=== PATIENT | female | born 1945 | race Caucasian/White ===

== ENCOUNTER 2022-05-16 00:56 | Day surgery (SDC) | payer MEDICARE, SELFPAY ==
[2022-05-07 15:44] VITALS: BMI 32.0
--- NOTE | 2022-05-15 08:19 | P.PNAN_ITS ---
Anes - Initial Pre Proc Eval Procedure: Operation Date: 05/16/22 09:30 Proposed Procedures p Esophagogastroduodenoscopy & Screening Colonoscopy - Pasha Arias MD Date/Time: 05/15/22 08:19 Surgeon: Pasha Arias MD Pre Op Diagnosis: dysphagia, neoplasm screening Patient Data Age: 77 Gender: F Height: 1.6 m Weight: 82 kg Allergies Allergy/AdvReac Type Severity Reaction Status Date / Time No Known Allergies Allergy Verified 05/16/22 08:52 Home Medications Medication Instructions Recorded Confirmed Type acetaminophen 650 mg 1,300 mg PO DAILY 05/07/22 05/16/22 History tablet,extended release (Tylenol Arthritis Pain) amlodipine 10 mg tablet 10 mg PO DAILY 05/07/22 05/16/22 History aspirin 81 mg capsule 81 mg PO DAILY 05/07/22 05/16/22 History atorvastatin 40 mg tablet 40 mg PO HS 05/07/22 05/16/22 History carvedilol 12.5 mg tablet 12.5 mg PO BID 05/07/22 05/16/22 History clopidogrel 75 mg tablet 75 mg PO DAILY 05/07/22 05/16/22 History diphenhydramine 25 1 - 2 tablet PO HS PRN Pain 05/07/22 05/16/22 History mg-acetaminophen 500 mg tablet (Tylenol PM Extra Strength) furosemide 20 mg tablet 40 mg PO DAILY 05/07/22 05/16/22 History isosorbide mononitrate 60 mg 120 mg PO DAILY 05/07/22 05/16/22 History tablet,extended release 24 hr losartan 100 mg tablet 100 mg PO DAILY 05/07/22 05/16/22 History melatonin 5 mg tablet 5 mg PO HS 05/07/22 05/16/22 History nitroglycerin 0.4 mg sublingual 0.4 mg sublingual DIRECTED PRN 05/07/22 05/16/22 History tablet Angina omeprazole 40 mg capsule,delayed 40 mg PO DAILY 05/07/22 05/16/22 History release Patient hx anesthesia problems: none Family hx anesthesia problems: none Results Review: All pre-operative results and documents have been reviewed as part of the pre- operative evaluation. [facility] Past Medical History Medical History (Updated 05/15/22 @ 12:58 by Pasha Arias MD) CAD (coronary artery disease) CHF (congestive heart failure) History of heart attack 2005 Hyperlipidemia Hypertension Surgical History Surgical History (Updated 05/15/22 @ 08:20 by Bonilla George DO) History of coronary artery stent placement Hx of CABG x4, 2005 Social History Social History Smoking status: Never smoker Alcohol intake: current Substance use: never Substance use type: does not use Living arrangements: with family Spiritual care concerns: No Anes - Eval Final PreProcedure Day of Procedure 05/15/22 08:19 Patient weight: obese Heart: regular rate and rhythm Lungs: clear to auscultation Airway: Mallampati scale class 1 Neurological: alert and oriented Last oral intake: >/= 8 hours ASA classification: IV Emergent: no Anesthetic plan: proceed Anesthesia type and monitoring: general GIVS and standard monitoring Results Review: All pre-operative results and documents have been reviewed as part of the pre- operative evaluation. Informed Consent: The patient's anesthetic plan and its attendant risks and benefits were discussed with the patient/family/POA. Questions were solicited and answers provided to the satisfaction of the patient/family/POA.
--- NOTE | 2022-05-15 12:57 | PM.HPGS ---
History of Present Illness History of Present Illness Consent: Risks, benefits, and alternatives have been discussed and questions answered. Patient agrees to proceed with procedure. Chief complaint: dysphagia, neoplasm screening Narrative: Sonw Cook is a 77 year old female who has recently been experiencing dysphagia. she does not need to stop eating during a meal. She feels as though food does not want to go past her throat or that is still there even when she has swallowed it. She also has intermittent epigastric pain. She is due for colon cancer screening as well. Review of Systems Review of Systems: All systems reviewed & are unremarkable except as noted in HPI and below PMFSH Past Medical History Medical History CAD (coronary artery disease) CHF (congestive heart failure) History of heart attack 2004 Hyperlipidemia Hypertension Surgical History Surgical History History of coronary artery stent placement Hx of CABG x4, 2005 Social History Social History Smoking status: Never smoker Alcohol intake: current Substance use: never Substance use type: does not use Living arrangements: with family Spiritual care concerns: No Meds Home Medications and Allergies Home Medications Medication Instructions Recorded Confirmed Type acetaminophen 650 mg 1,300 mg PO DAILY 05/07/22 05/16/22 History tablet,extended release (Tylenol Arthritis Pain) amlodipine 10 mg tablet 10 mg PO DAILY 05/07/22 05/16/22 History aspirin 81 mg capsule 81 mg PO DAILY 05/07/22 05/16/22 History atorvastatin 40 mg tablet 40 mg PO HS 05/07/22 05/16/22 History carvedilol 12.5 mg tablet 12.5 mg PO BID 05/07/22 05/16/22 History clopidogrel 75 mg tablet 75 mg PO DAILY 05/07/22 05/16/22 History diphenhydramine 25 1 - 2 tablet PO HS PRN Pain 05/07/22 05/16/22 History mg-acetaminophen 500 mg tablet (Tylenol PM Extra Strength) furosemide 20 mg tablet 40 mg PO DAILY 05/07/22 05/16/22 History isosorbide mononitrate 60 mg 120 mg PO DAILY 05/07/22 05/16/22 History tablet,extended release 24 hr losartan 100 mg tablet 100 mg PO DAILY 05/07/22 05/16/22 History melatonin 5 mg tablet 5 mg PO HS 05/07/22 05/16/22 History nitroglycerin 0.4 mg sublingual 0.4 mg sublingual DIRECTED PRN 05/07/22 05/16/22 History tablet Angina omeprazole 40 mg capsule,delayed 40 mg PO DAILY 05/07/22 05/16/22 History release Allergies Allergy/AdvReac Type Severity Reaction Status Date / Time No Known Allergies Allergy Verified 05/16/22 08:52 Exam Const: General: alert Orientation/consciousness: patient oriented x3 Resp: Auscultation: clear to auscultation bilaterally Cardio: Rhythm: regular rhythm GI: GI Palp: Yes Soft to palpation and No Tenderness to palpation present (GI) Neuro: General: patient oriented x3 Assessment and Plan Assessment and plan (1) Dysphagia: Code(s): R13.10 - Dysphagia, unspecified Status: Acute Assessment and Plan: EGD with possible biopsy or dilatation or cautery. (2) Colon cancer screening: Code(s): Z12.11 - Encounter for screening for malignant neoplasm of colon Status: Acute Assessment and Plan: Colonoscopy with possible biopsy or polypectomy or cautery or injection of substances.
[2022-05-16 08:54] VITALS: BP 137/64; PULSE 68; RESP 18; TEMP 36.1; O2SAT 98; BMI 29.8
[2022-05-16] MEDS: LACTATED RINGERS 1,000 ML 150 ML IV CONT (09:05)
--- NOTE | 2022-05-16 09:40 | SUR.OPER ---
egd ended at 930and colonoscopy started at 939.
[2022-05-16 09:58] VITALS: BP 111/60; PULSE 66; RESP 24; O2SAT 96
[2022-05-16 10:08] VITALS: BP 132/64; PULSE 63; RESP 21; O2SAT 96
[2022-05-16 10:18] VITALS: BP 142/67; PULSE 60; RESP 18; O2SAT 95
== END 2022-05-16 10:27 | disposition home or self-care (01) ==
PROVIDERS: Visit Provider Internal Medicine Gastroenterology
PROC: 0DJ08ZZ Inspection of Upper Intestinal Tract, Via Natural or Artificial Opening Endoscopic (ICD-10-PCS; CPT 43235; principal; 2022-05-16 09:30)
DX: R13.13 Dysphagia, pharyngeal phase (principal); K21.9 Gastro-esophageal reflux disease without esophagitis; Z12.11 Encounter for screening for malignant neoplasm of colon; K57.30 Diverticulosis of large intestine without perforation or abscess without bleeding; I25.10 Atherosclerotic heart disease of native coronary artery without angina pectoris; I11.0 Hypertensive heart disease with heart failure; I50.9 Heart failure, unspecified; I25.2 Old myocardial infarction; E78.5 Hyperlipidemia, unspecified; Z95.5 Presence of coronary angioplasty implant and graft; Z95.1 Presence of aortocoronary bypass graft; Z79.82 Long term (current) use of aspirin; Z79.02 Long term (current) use of antithrombotics/antiplatelets
CPT/HCPCS: 43235; G0121; J2704; J7120

== ENCOUNTER 2023-04-17 15:41 | Outpatient (CLI) | payer MEDICARE, SELFPAY ==
--- NOTE | ~2023-04-17 | US_ITS ---
EXAMINATION: US carotid duplex BI DATE: 04/17/2023 16:34 INDICATION: Left retinal embolus. Left eye vision abnormality. TECHNIQUE: Grayscale, color Doppler, and pulsed Doppler images of the cervical carotid arteries were obtained. The degree of vessel stenosis is placed in one of the following categories: normal, <50%, 5 0-69%, >=70% but less than near-occlusion, near-occlusion, or total occlusion. Note that percent sten osis relative to normal distal artery lumen diameter is indirectly measured from velocity measurement s as described by Derek, et al. Radiology 2003; [id number]. COMPARISON: None. FINDINGS: RIGHT: The right common carotid artery (CCA) peak systolic velocity (PSV) is 80 cm/s. The right internal car otid artery (ICA) PSV is 92 cm/s. The right ICA end-diastolic velocity (EDV) is 16 cm/s. The right IC A/CCA PSV ratio is 1.2. Grayscale and color Doppler images yield an estimate of <50% diameter reducti on from plaque in the ICA. There is antegrade flow in the right vertebral artery. LEFT: The left CCA PSV is 91 cm/s. The left ICA PSV is 105 cm/s. The left ICA EDV is 25 cm/s. The left ICA/ CCA PSV ratio is 1.2. Grayscale and color Doppler images yield an estimate of <50% diameter reduction from plaque in the ICA. There is antegrade flow in the left vertebral artery. IMPRESSION: 1. <50% stenosis in the right internal carotid artery. 2. <50% stenosis in the left internal carotid artery. Reviewed, dictated and finalized at location A. [employer]
== END 2023-04-17 15:42 | disposition home or self-care (01) ==
DX: H34.9 Unspecified retinal vascular occlusion (principal); I65.23 Occlusion and stenosis of bilateral carotid arteries
CPT/HCPCS: 93880

== ENCOUNTER 2025-02-12 08:22 | Emergency (ER) | payer MEDICARE, SELFPAY ==
[2025-02-12 08:27] VITALS: BP 199/65; PULSE 77; RESP 18; TEMP 36.5; O2SAT 96
[2025-02-12 10:08] VITALS: BP 159/79; PULSE 70; RESP 18; O2SAT 94
--- OUTSIDE RECORDS SUMMARY | 2025-02-12 10:28 | XMS_ITS | Clinical Summary ---
Author Organization [facility] Address [address] [place] [address] Care Team Providers Care Capital Campaign Fundraiser Name Role Phone Deondre Torres MD Primary Care Provider [phone] Deondre Torres MD Unavailable [phone] Jaylen Rodriguez MD PhD Unavailable + Sally Harris RN Unavailable Unavailable Argentina Hein RN Unavailable Unavaila Suzy Warner Unavailable Unavailable Allergies No known active allergies Medications aspirin (ASPIR-81) 81 mg tablet take 1 tablet (81MG) by ORAL route every day 0 02/03/20 10 Active diphenhydrAMINE- acetaminophen (TYLENOL PM) 25-500 mg tablet 500 MG TABS - 2 TABS AT BEDTIME Active REFRESH CLASSIC, PF, 1.4-0.6 % dropperette 05/20/19 19 Active melatonin 5 mg capsule 10 mg nightly as needed 05/20/19 19 Active acetaminophen (TYLENOL) 500 mg tablet Take 2 tablets (1,000 mg total) by mouth every 6 (six) hours as needed for pain Active nitroglycerin (NITROSTAT) 0.[address] 1 TABLET (0.4 MG TOTAL) UNDER THE TONGUE EVERY 5 (FIVE) MINUTES NEEDED FOR CHEST PAIN 25 tablet 1 11/09/19 23 Active clopidogreL (PLAVIX) 75 mg tablet TAKE 1 TABLET BY MOUTH DAILY 100 tablet 3 08/05/19 25 Active omeprazole (PriLOSEC) 40 mg capsule TAKE 1 CAPSULE BY MOUTH DAILY BEFORE A MEAL 100 capsule 3 08/04/19 25 Active amLODIPine (NORVASC) 10 mg tablet TAKE 1 TABLET BY MOUTH DAILY 100 tablet 3 08/05/19 25 Active atorvastatin (LIPITOR) 80 mg tablet Take 1 tablet (80 mg total) by mouth nightly 90 tablet 2 10/14/19 25 Active losartan (COZAAR) 100 mg tabletIndication s:Benign essential hypertension TAKE 1 TABLET BY MOUTH DAILY 100 tablet 3 11/09/19 25 Active carvediloL (COREG) 12.5 mg tablet TAKE 1 TABLET BY MOUTH TWICE DAILY 200 tablet 2 02/12/20 25 Active furosemide (LASIX) 20 mg tablet TAKE 3 TABLETS BY MOUTH DAILY 300 tablet 2 02/12/20 25 Active isosorbide mononitrate ER (IMDUR) 60 mg 24 hr tablet TAKE 2 TABLETS BY MOUTH DAILY 200 tablet 2 02/12/20 25 Active carvediloL (COREG) 12.5 mg tablet Take 1 tablet (12.5 mg total) by mouth 2 (two) times a day 180 tablet 3 05/11/19 25 025 Discontinued furosemide (LASIX) 20 mg tablet Take 3 tablets (60 mg total) by mouth daily 270 tablet 3 05/11/19 25 025 Discontinued isosorbide mononitrate ER (IMDUR) 60 mg 24 hr tablet Take 2 tablets (120 mg total) by mouth daily 180 tablet 3 05/11/19 25 025 Discontinued Active Problems Problem Noted Date Diagnosed Date Chronic heart failure with p reserved ejection fraction (HFpEF) 02/09/2025 Assessment & Plan (02/09/2025 12:16 PM CDT): Controlled and chronic. Continue current diet, carvedilol, losartan and amlodipine. 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 Continue current diet, aspirin, clopidogrel, isosorbide and amlodipine. Assessment & Plan (02/09/2025 12:10 PM CDT): Stable anginal pattern. Continue current diet, aspirin, clopidogrel, isosorbide and amlodipine. Check CBC, CMP and FLP. Assessment & Plan (03/17/2024 12:07 PM ACCOUNTING OFFICE MANAGER): Stable anginal pattern. Continue current diet, aspirin, clopidogrel, isosorbide and amlodipine. Check CBC, CMP and FLP. Assessment & Plan (03/13/2022 5:18 PM ACCOUNTING OFFICE MANAGER): Stable angina pattern. Continue current diet and medications. Check CBC, CMP and FLP. Herniation of intervertebral disc of cervical re gion 09/18/2013 Overview (08/08/2016): Cervical disc herniation Gastroesophageal reflux disease 09/18/2013 Overview (08/10/2016): ESOPHAGEAL REFLUX Assessment & Plan (03/13/2022 5:18 PM ACCOUNTING OFFICE MANAGER): New onset dysphagia. Evaluate with an EEG. History of coronary artery bypass surgery 2013 Overview (08/09/2016): S/p CABG (coronary artery bypass graft) Assessment & Plan (10/13/2024 10:58 AM CDT): Stable sp CAB in 2005 with PCI to RCA in 2019. Denies angina. Increase Lipitor to 80 mg daily, continue DAPT, Coreg 12.5 mg BID, losartan 100 mg daily, imdur 60 mg daily,and lasix [address] Rodriguez in 1 year or sooner as needed. Pure hypercholesterolemia 09/18/2013 Overview (08/10/2016): PURE HYPERCHOLESTEROLEM Assessment & Plan (02/09/2025 12:11 PM CDT): LDL above goal. Chronic and uncontrolled. Continue current diet and atorvastatin Target LDL less than 70. Check CMP and FLP. Assessment & Plan (10/13/2024 10:55 AM CDT): LDL above goal. Increase Lipitor to 80mg daily. Assessment & Plan (03/17/2024 12:07 PM ACCOUNTING OFFICE MANAGER): Target LDL less than 70. Continue current diet and atorvastatin. Check CMP and FLP. Assessment & Plan (03/17/2023 12:04 PM ACCOUNTING OFFICE MANAGER): Target LDL less than 70. Continue current diet and atorvastatin. Check CMP and FLP. Assessment & Plan (03/13/2022 5:18 PM ACCOUNTING OFFICE MANAGER): Target LDL less than 70. Continue current diet and atorvastatin. Check CMP and FLP. Low back pain 09/18/2013 Overview (08/10/2016): LUMBAGO Benign hypertension 09/18/2013 Overview (03/17/2024): Target BP <130/80. Continue current diet, aspirin, carvedilol, losartan and amlodipine. Assessment & Plan (02/09/2025 12:11 PM CDT): Controlled and chronic. Target BP less than 130/80. Continue current diet, carvedilol, losartan and amlodipine. Check CBC and CMP. Assessment & Plan (10/13/2024 10:58 AM CDT): Controlled. We made no changes. Assessment & Plan (03/17/2024 12:08 PM ACCOUNTING OFFICE MANAGER): Target BP <130/80. Continue current diet, aspirin, carvedilol, losartan and amlodipine. Assessment & Plan (03/17/2023 12:04 PM ACCOUNTING OFFICE MANAGER): Target BP less than 130/80. Continue current diet, amlodipine, carvedilol and losartan. Check CBC, CMP and FLP. Assessment & Plan (03/13/2022 5:18 PM ACCOUNTING OFFICE MANAGER): Target BP <130/80. Continue current diet and medications. Check CBC and CMP. 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 Continue current diet, aspirin, clopidogrel, isosorbide and carvedilol. Abnormal cardiac function test 07/23/2018 03/17/2024 Overview (07/23/2018): Added automatically from request for surgery [id number] Chest pain 12/05/2016 03/17/2024 Fatigue 11/24/2014 02/16/2018 Coronary arteriosclerosis in cantwell artery 09/18/2013 02/16/2018 Overview (08/08/2016): TITA NEVAREZ VSSL Hypertension 09/18/2013 02/12/2017 Overview (08/10/2016): HYPERTENSION NOS Hyperlipidemia 09/18/2010 02/18/2019 Overview (08/15/2017): Description: Hyperlipidemia Benign essential hypertension 09/18/2010 03/17/2024 Overview (08/15/2017): Description: Benign Essential Hypertension Encounters Date Type Department Care Team Description 02/11/2025 Telephone [facility] [address] [place] [address] [place] Yoo Epistaxis (Nose Bleed) 02/09/2025 1:20 PM CDT - 02/09/2025 11:[address] [address] Discharge Disposition: Discharge to home or self care 02/09/2025 10:15 AM CDT Office Visit [facility] at the [address] [phone] Deondre Torres MD Epistaxis (Primary Dx); Atherosclerosis of cantwell coronary artery of cantwell heart with angina pectoris; Pure hypercholesterolemia ; Benign hypertension; Chronic heart failure with preserved ejection fraction (HFpEF) 02/09/2025 Orders Only [facility] at the [address] [phone] Deondre Torres MD Pure hypercholesterolemia ; Epistaxis; Benign hypertension 02/09/2025 Nurse Triage [facility] at the [address] [phone] Deondre Torres MD from Last 3 Months Immunizations Immunization Administration Dates Next Due COVID-19 MRNA (MODERNA) .5 M L (50 MCG) VACCINE (12 YEARS AND UP) 02/16/2024 COVID-19 mRNA (PFIZER) 0.3 m L (30 mcg) vaccine (12 years and up) 02/03/2025 Influenza, Quad, Adjuvantate d, Intramuscular 02/27/2022 Influenza, Quadrivalent, Hig h Dose, Preservative Free, Intrr 01/27/2023,02/27/2022,01/30/2021,02/21 Influenza, Quadrivalent, Spl it, Intramuscular 02/02/2021 Influenza, Split 02/02/2010 Influenza, Trivalent, High D ose, Split, Preservative Free, Intramuscular 02/16/2024,02/18/2019,02/16/2018,02/12,02/02/2016,02/05/2015,03/04/2014 ,02/02/2014,02/27/2013 Influenza, Trivalent, IM (MDV) 3,02/08/2012,02/02/2011,02/18 Influenza, Unspecified 02/03/2025,01/27/2023 Moderna SARS-CoV-2 Monovalen t Vaccination (12+ YRS) 03/09/2021,07/18/2020,06/20/2020 Moderna Sars-cov-2 Bivalent Vaccine 50 Mcg/0.5 mL (12+ YRS)-Blue/Dupree 04/15/2022 Pneumococcal Conjugate PCV 13 02/02/2016 Pneumococcal Polysaccharide PPV23 05/18/2014,05/2008 Tdap 05/05/2008,08/08/2006 ZOSTER LIVE 07/06/2014,05/19/2014 ZOSTER Recombinant 04/29/2018,02/19/2018 Surgical History Surgery Date Site/Laterality Comments OTHER SURGICAL HISTORY 05/05/2004 - 05/04/2005 Coronary artery disease: CABG OTHER SURGICAL HISTORY 05/05/2004 - 05/04/2005 Coronary artery disease: Coronary artery bypass graft (CABG) CORONARY ARTERY BYPASS GRAFT 05/05/2004 - 05/04/2005 OTHER SURGICAL HISTORY none CARDIAC CATHETERIZATION CORONARY STENT PLACEMENT Medical History Medical History Date Comments Hypertension Hypertension Hyperlipidemia Hyperlipidemia Cardiovascular disease Coronary artery disease Coronary artery disease CHF (congestive heart failure) (HCC) Family History Medical History Relation Name Comments Coronary artery disease Brother Arian nary artery disease; Heart attack Brother Coronary artery disease Father Arian nary artery disease; Cause of : Coronary artery disease Heart attack Father Coronary artery disease Mother Arian nary artery disease, premature; Cause of : Coronary artery disease, premature Heart attack Mother Heart disease Other Family history of Heart disease; Relation Name Status Comments Brother Father (Age 72) Mother (Age 36) Other Social History Tobacco Use Types Packs/Day Years Used Date Smoking Tobacco: Never Smokeless Tobacco: Never Tobacco Cessation:Counseling Given: Not Answered Alcohol Use Standard Drinks/Week Comments No 0 (1 standard drink = 0.6 oz pur e alcohol) AUDIT-C Answer Date Recorded Q1: How often do you have a drink containing alcohol? Never 03/17/2024 Q2: How many drinks containi ng alcohol do you have on a typical day when you are drinking? Patient does not drink Q3: How often do you have si x or more drinks on one occasion? Never 03/17/2024 PHQ-2 Answer Date Recorded PHQ-2 Total Score (If total score is 3 or more points, staff should administer the PHQ-9) 0 02/09/2025 Comments No Sex and Gender Information Value Date Recorded Sex Assigned at Not on file Legal Sex Female 11:43 PM ACCOUNTING OFFICE MANAGER Gender Identity Not on file Sexual Orientation Not on file Obstetrics History Last Filed Vital Signs Vital Sign Reading Time Taken Comments Blood Pressure 130/62 02/09/2025 10:10 AM CDT Pulse 59 02/09/2025 10:10 AM CDT Temperature 37.1 C (98.8 F) 12/20/2021 12:31 PM CDT Respiratory Rate 16 12/08/2023 1:47 PM CDT Oxygen Saturation 98% 02/09/2025 10:10 AM CDT Inhaled Oxygen Concentration - - Weight 80.6 kg (177 lb 9.6 oz) 02/09/2025 10:10 AM CDT Height 160 cm (5' 3) 02/09/2025 10:10 AM CDT Body Mass Index 31.46 02/09/2025 10:10 AM CDT Plan of Treatment Health Maintenance Due Date Last Done Comments Hepatitis C Screening 1945 Hepatitis B Screening 1963 Osteoporosis Screening-Bone Density Scan 08/17/2014 08/17/2012 DTaP/Tdap/Td Vaccine (3 - Td or Tdap) 05/05/2018 05/05/2008, 08/08/2006 Fall Risk Assessment 03/17/2025 03/17/2024, 03/17/2023, 07/04/2022, Additional history exists Well Visit 65+ 03/17/2025 03/17/2024, 03/05, 03/13/2022, Additional history exists Depression Screening 02/09/2026 02/09/2025, 03/17/2024, 03/17/2023, Additional history exists Pneumococcal vaccine 65+ Completed 016, 05/18/2014, 05/05/2008 Zoster Vaccine Completed 04/29/2018, 02/02, 07/06/2014, Additional history exists Breast Cancer Screening-Mammogram Discontinued 03/20/2022, 03/20/2022, 02/25/2019, Additional history exists Covid-19 Vaccine Completed 02/03/2025, , 01/27/2023, Additional history exists Influenza Vaccine Completed 02/03/2025, , 01/27/2023, Additional history exists Medical Devices Implanted Type Area Surg Tech Device Identifier Shelf Expiration Date Model / Serial / Lot [employer] [id number] Angio-Seal Evolution 6fr .035in Guidewire Bypass Tube Suture - [id number] - [id number] Implanted:Qty : 1 on 10/31/2020 by Jordon Underwood MD at [facility] Other - see comments [employer] Kenneth 07/02/2021 [id number] / [id number] Med[employer] X [id number] Resolute Yuri 2.75mm 2.1-2.7fr 38mm 140cm Rapid Exchange - [id number] - [id number] Implanted:Qty : 1 on 08/28/2018 by Jordon Underwood MD at [facility] Stent Right: Coronary Med[employer] X 10/14/2019 [id number] / [id number] / [id number] Description:RCA [employer] X [id number] Resolute [place] 2.5mm 2.1-2.7fr 22mm 140cm Rapid Exchange - [id number] - [id number] Implanted:Qty : 1 on 08/28/2018 by Jordon Underwood MD at [facility] Stent Right: Coronary [employer] X 02/06/2019 [id number] / [id number] / [id number] 2 Description:RCA [employer] X [id number] Resolute Yuri 3mm 2.1-2.7fr 38mm 140cm Rapid Exchange Radiopaque - [id number] - [id number] Implanted:Qty : 1 on 08/28/2018 by Jordon Underwood MD at [facility] Stent Right: Coronary [employer] X 01/15/2020 [id number] / [id number] / [id number] Description:RCA [employer] X [id number] Resolute [place] 2.5mm 2.1-2.7fr 34mm 140cm Rapid Exchange - [id number] Implanted:Qty : 1 on 07/30/2018 by Jordon Underwood MD at [facility] [employer] X 02/12/2019 [id number] / / [id number] [employer] X [id number] Resolute [place] 2.5mm 2.1-2.7fr 8mm 140cm Rapid Exchange Radiopaque - [id number] Implanted:Qty : 1 on 07/30/2018 by Jordon Underwood MD at [facility] [employer] X 01/22/2019 [id number] / / [id number] Procedures Procedure Name Priority Date/Time Associated Diagnosis Comments EGFR Routine 02/09/2025 10:53 AM CDT Epistaxis Benign hypertension DIFFERENTIAL AUTO Routine 02/09/2025 10:53 AM CDT Epistaxis Pure hypercholesterolemia Benign hypertension GLUCOSE, RANDOM (OUTREACH) Routine 02/09/2025 10:53 AM CDT Epistaxis Benign hypertension COMPREHENSIVE METABOLIC PANEL WITHOUT GLUCOSE (OUTREACH) Routine 02/09/2025 10:53 AM CDT Epistaxis Benign hypertension COMPREHENSIVE METABOLIC PANEL (OUTREACH) Routine 02/09/2025 10:53 AM CDT Epistaxis Benign hypertension CBC WITH AUTO DIFFERENTIAL Routine 02/09/2025 10:53 AM CDT Epistaxis Pure hypercholesterolemia Benign hypertension LIPID PANEL Routine 02/09/2025 10:53 AM CDT Pure hypercholesterolemia SCREENING MAMMOGRAM 2D BILATERAL Schedule Routine, Read Routine (OP Routine) 03/20/2022 DEXA AXIAL SKELETON BONE DENSITY 1 OR MORE SITES Routine 08/17/2012 10:42 AM CDT from Last 3 Months or Most Recently Relevant to Health Maintenance Results * Glucose, random (Outreach) (02/09/2025 10:53 AM CDT) Glucose 125 70 - 199 mg/dL Comment: Interpretive Data Fasting glucose >/= 126 mg/dl is diagnostic for diabetes. Fasting is defined as no caloric intake for at least 8 hours. Fasting glucose between 100 mg/dl to 125 mg/dl is diagnostic of prediabetes. In a patient with classic symptoms of hyperglycemia or hyperglycemic crisis, a random glucose >/= 200 mg/dl is diagnostic for diabetes. In the absence of unequivocal hyperglycemia, results should be confirmed by repeat testing. The classification and Diagnosis of Diabetes Diabetes Care 2021; 46: S19-S40. Current interpretive data was last revised 2022. Blood 02/09/2025 10:5 3 AM CDT 02/09/2025 2:17 PM CDT Deondre Torres MD LAB BLOOD ORDERABLES Final Re sult JUSTYN KHAN [facility] Department [place] [address] * (ABNORMAL) eGFR (02/09/2025 10:53 AM CDT) Pathologist [facility] eGFR 50(L) >=60 mL/min/1. 73 m2 Comment: Interpretive Data Reference Interval Normal >/= 90 mL/min/1.73m2 Mildly decreased* 60 - 89 mL/min/1.73m2 Mildly to moderately decreased 45 - 59 mL/min/1.73m2 Moderately to severely decreased 30 - 44 mL/min/1.73m2 Severely decreased 15 - 29 mL/min/1.73m2 Kidney Failure < 15 mL/min/1.73m2 *Relative to young adult level Estimated glomerular filtration rate is determined by the 2020 CKD-EPI equation recommended by the National Kidney Foundation (A Unifying Approach to GFR Estimation: Recommendations of the NKF-ASK Task Force on Reassessing the Inclusion of Race in Diagnosing Kidney Disease, JASN 202). The CKD-EPI equation should not be used for patients with unstable renal function and has not been validated in children and those over 70. Current interpretive data was last reviewed 2021. Blood 02/09/2025 10:5 3 AM CDT 02/09/2025 2:19 PM CDT Deondre Torres MD LAB BLOOD ORDERABLES Final Re sult [facility] Department [place] [address] * Differential, auto (02/09/2025 10:53 AM CDT) Neutrophil abs 5.53 1.50 - 6.50 K/cumm Imm gran abs 0.02 0.00 - 0.10 K/cumm [facility] Lymphocyte abs 1.53 0.80 - 3.30 K/cumm [facility] Monocyte abs 0.56 0.20 - 0.80 K/cumm [facility] Eosinophil abs 0.10 0.00 - 0.50 K/cumm [facility] Basophil abs 0.06 0.00 - 0.10 K[facility]umm [facility] Neutrophil pct 70.8 % [facility] Comment: Interpretive Data Percent cell count reference ranges are not reported, since discordance with absolute values may lead to misinterpretation of CBC data. Current Interpretive Data was last revised on 2017. Imm gran pct 0.3 % [facility] Comment: Interpretive Data Percent cell count reference ranges are not reported, since discordance with absolute values may lead to misinterpretation of CBC data. Current Interpretive Data was last revised on 2017. Lymphocyte pct 19.6 % [facility] Comment: Interpretive Data Percent cell count reference ranges are not reported, since discordance with absolute values may lead to misinterpretation of CBC data. Current Interpretive Data was last revised on 2017. Monocyte pct 7.2 % [facility] Comment: Interpretive Data Percent cell count reference ranges are not reported, since discordance with absolute values may lead to misinterpretation of CBC data. Current Interpretive Data was last revised on 2017. Eosinophil pct 1.3 % [facility] Comment: Interpretive Data Percent cell count reference ranges are not reported, since discordance with absolute values may lead to misinterpretation of CBC data. Current Interpretive Data was last revised on 2017. Basophil pct 0.8 % [facility] Comment: Interpretive Data Percent cell count reference ranges are not reported, since discordance with absolute values may lead to misinterpretation of CBC data. Current Interpretive Data was last revised on 2017. Blood 02/09/2025 10:5 3 AM CDT 02/09/2025 2:17 PM CDT Deondre Torres MD LAB BLOOD ORDERABLES Final Re sult [facility] Department [place] [address] * (ABNORMAL) Comprehensive metabolic panel, without glucose (Outreach) (02/09/2025 10:53 AM CDT) Sodium 143 135 - 145 mmol/L Potassium, pl 4.4 3.3 - 4.9 mmol/L [facility] Chloride 105 97 - 110 mmol/L [facility] CO2 28 22 - 32 mmol/L [facility] Anion gap 10 2 - 15 mmol/L [facility] BUN 27(H) 6 - 25 mg/dL [facility] Creatinine 1.12(H) 0.60 - 1.10 mg/dL [facility] Calcium 9.6 8.5 - 10.3 mg/dL [facility] Protein, pl 8.2 6.5 - 8.5 g/dL [facility] Albumin 4.2 3.5 - 5.0 g/dL [facility] Bilirubin, total 0.5 0.1 - 1.2 mg/dL [facility] Alk phos 90 40 - 130 Units/L [facility] AST 23 10 - 45 Units/L [facility] ALT 16 7 - 45 Units/L [facility] Blood 02/09/2025 10:5 3 AM CDT 02/09/2025 2:17 PM CDT Deondre Torres MD LAB BLOOD ORDERABLES Final Re sult [facility] Department [place] [address] * (ABNORMAL) CBC with auto differential (02/09/2025 10:53 AM CDT) Pathologist [facility] WBC 7.80 3.80 - 9.90 K/cumm Hgb 12.8 11.9 - 15.5 g/dL [facility] Hct 40.1 35.6 - 45.5 % [facility] Plt 263 150 - 400 K/cumm [facility] MPV 11.3 9.1 - 12.3 fL [facility] RBC 4.78 3.90 - 5.20 M/cumm [facility] MCV 83.9 81.3 - 96.4 fL [facility] MCH 26.8(L) 27.1 - 33.3 pg [facility] MCHC 31.9(L) 32.3 - 35.7 g/dL [facility] RDW CV 14.3 11.1 - 14.9 % [facility] RDW SD 44.1 35.7 - 48.1 fL [facility] NRBC abs 0.00 0.00 - 0.01 K/cumm [facility] Blood 02/09/2025 10:5 3 AM CDT 02/09/2025 2:17 PM CDT Deondre Torres MD LAB BLOOD ORDERABLES Final Re sult [facility] Department [place] [address] * Lipid panel (02/09/2025 10:53 AM CDT) Pathologist [facility] Cholesterol 176 30 - 199 mg/dL Comment: Interpretive Data Ages < or = 19 years Acceptable: <170 mg/dL Borderline high: 170-199 mg/dL High: >or= 200 mg/dL Ages > or = 20 years Desirable: <200 mg/dL Borderline high: 200-239 mg/dL High: >or= 240 mg/dL Literature References: 1. Expert Panel on Integrated Guidelines for Cardiovascular Health and Risk Reduction in Children and Adolescents. Pediatrics 2011;128:S213 2. NCEP Expert Panel. Circulation 2004;110:227 Current Interpretive Data was last revised on 2017. Triglycerides 130 <=149 mg/dL [facility] Comment: Interpretive Data Ages < or = 9 years Acceptable: <75 mg/dL Borderline high: 75-99 mg/dL High: >or= 100 mg/dL Ages 10 to 20 years Acceptable: <90 mg/dL Borderline high: 90-129 mg/dL High: >or= 130 mg/dL Ages > or = 20 years Desirable: <150 mg/dL Borderline high: 150-199 mg/dL High: 200-499 mg/dL Very high: >or= 499 mg/dL Literature References: 1. Expert Panel on Integrated Guidelines for Cardiovascular Health and Risk Reduction in Children and Adolescents. Pediatrics 2011;128:S213 2. NCEP Expert Panel. Circulation 2004;110:227 Current Interpretive Data was last revised on 2017. HDL 62 >=40 mg/dL [facility] Comment: Interpretive Data Ages < or = 19 years Acceptable: >45 mg/dL Borderline low: 40-45 mg/dL Low: <40 mg/dL Ages > or = 20 years Desirable: >or= 60 mg/dL Low: <40 mg/dL Literature References: 1. Expert Panel on Integrated Guidelines for Cardiovascular Health and Risk Reduction in Children and Adolescents. Pediatrics 2011;128:S213 2. NCEP Expert Panel. Circulation 2004;110:227 Current Interpretive Data was last revised on 2017. LDL, calculated 91 <=129 mg/dL [facility] Comment: Interpretive Data Ages < or = 19 years Acceptable: <110 mg/dL Borderline high: 110-129 mg/dL High: >or= 130 mg/dL Ages > or = 20 years Optimal: <100 mg/dL Near optimal: 100-129 mg/dL Borderline high: 130-159 mg/dL High: >160 mg/dL Calculated using the Artie LDL-C estimating equation. This equation was implemented on 2023. Prior to this date LDL-C was estimated using the Friedewald equation. Literature References: 1. Expert Panel on Integrated Guidelines for Cardiovascular Health and Risk Reduction in Children and Adolescents. Pediatrics 2011;128:S213 2. NCEP Expert Panel. Circulation 2004;110:227 3. Artie Sandoval et al. EDA Cardiol. 2020 September 02;5(5):540-548. doi: 10.1001/jamacardio.2020.0013 Current Interpretive Data was last revised on 2023. Non-HDL Cholesterol 114 mg/dL [facility] Comment: Interpretive Data Ages < or = 19 years Acceptable: <120 mg/dL Borderline high: 120-144 mg/dL High: >145 mg/dL Ages > or = 20 years When triglycerides are >200 mg/dL, Non-HDL cholesterol is a secondary target of therapy with treatment goals that are 30 mg/dL greater than the LDL cholesterol target. Literature References: 1. Expert Panel on Integrated Guidelines for Cardiovascular Health and Risk Reduction in Children and Adolescents. Pediatrics 2011;128:S213 2. NCEP Expert Panel. Circulation 2004;110:227 Current Interpretive Data was last revised on 2017. Chol/HDL ratio 3 [facility] Blood 02/09/2025 10:5 3 AM CDT 02/09/2025 2:17 PM CDT Deondre Torres MD LAB BLOOD ORDERABLES Final Re sult [facility] Department [place] [address] * Screening Mammogram 2D Bilateral (03/20/2022) SCRIBED BI-RADS 1 Anatomical Region Laterality Modality Breast Bilateral Mammography Historical Provider MD SHERMAN MAMMO PROCEDURES Gretchen l Result * Dexa Axial Skeleton Bone Density 1 or 2 Site (08/17/2012 10:42 AM CDT) Anatomical Region Laterality Modality Body N/A Radiographic Liz ging 08/17/2012 10:4 2 AM CDT Narrative 08/17/2012 11:03 AM CDT TEODORA MERLOS M.D. FINAL REPORT ACC# Date Time Exam [id number] Aug 17, 2012 10:42:00 [id number] Bone DEXA (2) EXAMINATION: BONE DENSITOMETRY OF THE SPINE AND HIP DATE OF STUDY: 08/17/2012 HISTORY: 67-year-old postmenopausal woman who is not being treated with anti-resorptive medications. Evaluate bone mineral density. FINDINGS (SPINE): The bone mineral density of L1-L4 was assessed by dual-energy x-ray absorptiometry. The average bone mineral density within this region is 1.164 gm/sq-cm. This is 2.9 standard deviations above the mean of the average bone mineral density for age- and gender-matched subjects (the Z-score). It is 1.1 standard deviations above the mean peak bone mineral density in young adults (the T-score). FINDINGS (FEMORAL NECK): The bone mineral density of the left femoral neck was assessed by dual-energy x-ray absorptiometry. The average bone mineral density within the femoral neck region is 0.764 gm/sq-cm. This is 0.8 standard deviations above the mean of the average bone mineral density for age- and gender-matched subjects (the Z-score). It is 0.8 standard deviations below the mean peak bone mineral density in young adults (the T-score). FINDINGS (TOTAL HIP): The bone mineral density of the left hip was assessed by dual-energy x-ray absorptiometry. The average bone mineral density within the total hip region is 1.050 gm/sq-cm. This is 2.2 standard deviations above the mean of the average bone mineral density for age- and gender-matched subjects (the Z-score). It is 0.9 standard deviations above the mean peak bone mineral density in young adults (the T-score). SUMMARY OF CURRENT RESULTS: Region Exam Date BMD T-Score Z-Score AP Spine (L1-L4) 08/17/2012 1.164 1.1 2.9 Femoral Neck (Left) 08/17/2012 0.764 -0.8 0.8 Total Hip (Left) 08/17/2012 1.050 0.9 2.2 IMPRESSION: - 1. The bone mineral density of the lumbar spine is normal. 2. The bone mineral density of the left femoral neck is normal. 3. The bone mineral density of the left total hip is normal. 4. Overall, the above findings are normal by WHO criteria. 5. Calculation of fracture risk using the FRAX model is not appropriate in certain settings. It was not performed in this patient because the patient met one or more of the following conditions: pre-menopausal status, man under age 50, normal bone density, use of hormonal therapy within 1 year, use of anti-resorptive therapy within two years, or bilateral hip replacements. General comments regarding interpretation of bone mineral density measurements: a) In children, premenopausal woman and males under age 50 not at increased risk for fractures only Z-scores, not T-scores are used to indicate risk. A Z-score above -2.0 is defined as within the expected range for age and Z-score at or less than -2.0 is below the expected range for age. A Z-score below the expected range for age in a patient with recent fractures and/or chronic corticosteroid treatment is consistent with a diagnosis of osteoporosis. b) In post menopausal women and males over 50, comparison of the measured bone mineral density with the average value in young normal subjects (the T-score) has been found to be useful in assessing fracture risk. Fracture risk approximately doubles for each 1.0 standard deviation (SD) in individual's hip or spine bone mineral density is below the average value of young normal subjects. The World Health Organization (WHO) has defined T-scores of -1.0 to -2.5 as indicative of low bone mass (OSTEOPENIA), and T-scores of -2.5 or lower to be indicative of OSTEOPOROSIS, based on the site of lowest bone density. Note that there will be a change in reporting format and reference databases as patients move from the younger population (group a) to the older population (group b) The National Osteoporosis Foundation (www.nof.org) recommends adequate intake of calcium and vitamin D and regular weight-bearing exercise in all patients. They recommend pharmacologic treatment in postmenopausal women and men age 50 and older presenting with any of the followin) Osteoporosis, after appropriate evaluation to exclude secondary causes. 2) A hip or vertebral (clinical or radiographic) fracture, regardless of the bone density. 3) Low bone mass (Osteopenia) and one or more of: other prior fractures, secondary causes associated with high risk of fracture (such as glucocorticoid use or total immobilization), or computed high risk of fracture (10-yr probability of hip fracture >= 3% or a 10-yr probability of any major osteoporosis-related fracture >= 20% based on the [place].-adapted WHO algorithm), available at http://www.shef.ac.uk/FRAX). Requested By: DEONDRE TORRES M.D. Dictated By: TEODORA MERLOS M.D. on Aug 17 2012 10:46A This document has been electronically signed by: TEODORA MERLOS M.D. on Aug 17 2012 11:03A Procedure Note Provider, MD Adrianna - 08/28/2016 TEODORA MERLOS M.D. FINAL REPORT ACC# Date Time Exam [id number] Aug 17, 2012 10:42:00 [id number] Bone DEXA (2) EXAMINATION: BONE DENSITOMETRY OF THE SPINE AND HIP DATE OF STUDY: 08/17/2012 HISTORY: 67-year-old postmenopausal woman who is not being treated with anti-resorptive medications. Evaluate bone mineral density. FINDINGS (SPINE): The bone mineral density of L1-L4 was assessed by dual-energy x-ray absorptiometry. The average bone mineral density within this region is 1.164 gm/sq-cm. This is 2.9 standard deviations above the mean of the average bone mineral density for age- and gender-matched subjects (the Z-score). It is 1.1 standard deviations above the mean peak bone mineral density in young adults (the T-score). FINDINGS (FEMORAL NECK): The bone mineral density of the left femoral neck was assessed by dual-energy x-ray absorptiometry. The average bone mineral density within the femoral neck region is 0.764 gm/sq-cm. This is 0.8 standard deviations above the mean of the average bone mineral density for age- and gender-matched subjects (the Z-score). It is 0.8 standard deviations below the mean peak bone mineral density in young adults (the T-score). FINDINGS (TOTAL HIP): The bone mineral density of the left hip was assessed by dual-energy x-ray absorptiometry. The average bone mineral density within the total hip region is 1.050 gm/sq-cm. This is 2.2 standard deviations above the mean of the average bone mineral density for age- and gender-matched subjects (the Z-score). It is 0.9 standard deviations above the mean peak bone mineral density in young adults (the T-score). SUMMARY OF CURRENT RESULTS: Region Exam Date BMD T-Score Z-Score AP Spine (L1-L4) 08/17/2012 1.164 1.1 2.9 Femoral Neck (Left) 08/17/2012 0.764 -0.8 0.8 Total Hip (Left) 08/17/2012 1.050 0.9 2.2 IMPRESSION: - 1. The bone mineral density of the lumbar spine is normal. 2. The bone mineral density of the left femoral neck is normal. 3. The bone mineral density of the left total hip is normal. 4. Overall, the above findings are normal by WHO criteria. 5. Calculation of fracture risk using the FRAX model is not appropriate in certain settings. It was not performed in this patient because the patient met one or more of the following conditions: pre-menopausal status, man under age 50, normal bone density, use of hormonal therapy within 1 year, use of anti-resorptive therapy within two years, or bilateral hip replacements. General comments regarding interpretation of bone mineral density measurements: a) In children, premenopausal woman and males under age 50 not at increased risk for fractures only Z-scores, not T-scores are used to indicate risk. A Z-score above -2.0 is defined as within the expected range for age and Z-score at or less than -2.0 is below the expected range for age. A Z-score below the expected range for age in a patient with recent fractures and/or chronic corticosteroid treatment is consistent with a diagnosis of osteoporosis. b) In post menopausal women and males over 50, comparison of the measured bone mineral density with the average value in young normal subjects (the T-score) has been found to be useful in assessing fracture risk. Fracture risk approximately doubles for each 1.0 standard deviation (SD) in individual's hip or spine bone mineral density is below the average value of young normal subjects. The World Health Organization (WHO) has defined T-scores of -1.0 to -2.5 as indicative of low bone mass (OSTEOPENIA), and T-scores of -2.5 or lower to be indicative of OSTEOPOROSIS, based on the site of lowest bone density. Note that there will be a change in reporting format and reference databases as patients move from the younger population (group a) to the older population (group b) The National Osteoporosis Foundation (www.nof.org) recommends adequate intake of calcium and vitamin D and regular weight-bearing exercise in all patients. They recommend pharmacologic treatment in postmenopausal women and men age 50 and older presenting with any of the followin) Osteoporosis, after appropriate evaluation to exclude secondary causes. 2) A hip or vertebral (clinical or radiographic) fracture,regardless of the bone density. 3) Low bone mass (Osteopenia) and one or more of: other prior fractures, secondary causes associated with high risk of fracture (such as glucocorticoid use or total immobilization), or computed high risk of fracture (10-yr probability of hip fracture >= 3% or a 10-yr probability of any major osteoporosis-related fracture >= 20% based on the U.S.-adapted WHO algorithm), available at http://www.shef.ac.uk/FRAX). Requested By: DEONDRE TORRES M.D. Dictated By: TEODORA MERLOS M.D. on Aug 17 2012 10:46A This document has been electronically signed by: TEODORA MERLOS M.D. on Aug 17 2012 11:03A us Historical Provider MD SHERMAN DXA PROCEDURES Final Result from Last 3 Months or Most Recently Relevant to Health Maintenance Insurance [employer] MEDICARE PPO [facility] MEDICARE ADVANTAGE [employer] CHOICE MEDICARE PPO [facility] MEDICARE ADVANTAGE Advance Directives For more information, please contact: [phone] * Full Code (Latest Code Status on File) Date Activated Date Inactivated Comments 08/28/2018 11:10 AM 08/28/2018 7:06 PM * Full Code Date Activated Date Inactivated Comments 07/30/2018 9:43 AM 07/30/2018 5:09 PM Care Teams Capital Campaign Fundraiser Relationship Specialty Start Date End Date Deondre Torres MD [facility]0 [address] [place] [address] PCP - General 04/13/09 [facility] [address] [place] [address] PCP - [employer] Attributed PCP 08/03/18 Jaylen Rodriguez MD PhD [address] [place] [address] DR Rubi DAVIES [address] [place] [id number] Cardiology 03/20/20 Sally Harris, champagne maker Failure Coordinator 09/05/21 Argentina Hein, champagne maker Failure Coordinator 03/13/22 Suzy Robbins Primary Safety Lead 01/20/25
--- OUTSIDE RECORDS SUMMARY | 2025-02-12 10:28 | XMS_ITS | Encounter Summary ---
Author Organization [facility] Healthcare Address [address] [place] [address] Care Team Providers Care Database Architect Name Role Phone Deondre Connor MD Primary Care Provider Deondre Connor MD Unavailable [phone] Deondre Connor MD Unavailable Margarita Feldman RN Unavailable Jaylen Rodriguez MD PhD Unavailable + Sally Harris RN Unavailable Unavailable Argentina Hein RN Unavailable Unavaila Suzy Warner Unavailable Unavailable Encounter Details Date Type Department Care Team (Late st Contact Info) Description 02/27/2016 Orders Only [facility] Information Management [address] [place] [id number] Scanning, Provider Social History Tobacco Use Types Packs/Day Years Used Date Smoking Tobacco: Never Alcohol Use Standard Drinks/Week Comments No 0 (1 standard drink = 0.6 oz pur e alcohol) Comments Unknown Sex and Gender Information Value Date Recorded Sex Assigned at Not on file Legal Sex 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 Gender Identity Not on file Sexual Orientation Not on file documented as of this encounter Plan of Treatment Not on file documented as of this encounter Procedures Procedure Name Priority Date/Time Associated Diagnosis Comments SCAN - LABS 02/27/2016 documented in this encounter Results * SCAN - LABS (02/27/2016) us Provider Scanning Final Result documented in this encounter Visit Diagnoses Not on filedocumented in this encounter Care Teams Database Architect Relationship Specialty Start Date End Date Deondre Connor MD [address] [place], [place] [address]JEAN [address]IES [address] [place] [address] PCP - General 04/13/09 Deondre Connor MD [address] [place], [place] [address]JE[address] [place] [address] PCP - [employer] Attributed PCP 04/04/18 Deondre Connor MD [address] [place], [place] [address] [place] [address] PCP - [employer] Attributed PCP 08/03/18 Margarita Feldman RN [address] [facility] [address] [place] [address] 03/20/20 03/12/22 Jaylen Rodriguez MD PhD [address] [facility] [address] [place] [address] Cardiology 03/20/20 Sally Harris RN Heart Failure Coordinator 09/05/21 Argentina Hein RN Heart Failure Coordinator 03/13/22 Suzy Robbins Primary Wool Cleaner 01/20/25 documented as of this encounter
--- OUTSIDE RECORDS SUMMARY | 2025-02-12 10:28 | XMS_ITS | Clinical Summary ---
Author Organization [facility] Address [address] [place] [address] Care Team Providers Care Acid Extractor Name Role Phone Deondre Connor MD Primary Care Provider [phone] Source Comments [facility],non-owned Affiliates and Associated Physician Practices is amultiple site organization consisting of ambulatory clinics and hospital sitesin [place], [place], [place] and [place]. This disclosure is being madepursuant to the Care Everywhere program and may not contain all information available regarding this patient. Last updated 18.[facility] [employer] Allergies No known active allergies Medications * Be aware that medications may not be up to date on this document. Alwaysverify current medications with the patient. clopidogrel (PLAVIX) 75 MG tablet Take 1 tablet by mouth once daily 05/10/2020 Active chlorthalidone (HYGROTON) 25 MG tablet Take 1 tablet by mouth once daily 05/17/2020 Active isosorbide mononitrate CR 24hr (IMDUR) 60 MG tablet Take 1 tablet by mouth once daily 05/17/2020 Active losartan (COZAAR) 100 MG tablet Take 1 tablet by mouth once daily 05/17/2020 Active omeprazole (PRILOSEC) 40 MG capsule Take 1 capsule by mouth once daily 03/08/2020 Active carvedilol (COREG) 12.5 MG tablet TAKE 1 TABLET TWICE DAILY WITH MEALS 05/01/2021 Active Active Problems Problem Noted Date Diagnosed Date Primary osteoarthritis of both knees 05/09/2021 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 07/23/2018 Overview (08/15/2020): Added automatically from request for surgery [id number] Social History Tobacco Use Types Packs/Day Years Used Date Smoking Tobacco: Never Assessed Comments No Sex and Gender Information Value Date Recorded Sex Assigned at Not on file Legal Sex Female 6:20 AM SHEARING SHED HAND Gender Identity Not on file Sexual Orientation Not on file Plan of Treatment Health Maintenance Due Date Last Done Comments BONE DENSITY TESTING 1945 HEPATITIS C SCREENING 04/20/1964 DTAP/TDAP/TD VACCINES (1 - Tdap) 1965 PNEUMOCOCCAL VACCINE 50+ (1 of 1 - PCV) 1996 ZOSTER VACCINE (1 of 2) 1996 Respiratory Syncytial Virus (RSV) Vaccine Pt: or over 60 yrs (1 - 1-dose 75+ series) 2021 DEPRESSION SCREENING 05/05/2024 COVID-19 VACCINE ( - 2024- season) 2025 03/08/2021, 07/18/2020, 06/20/2020 INFLUENZA VACCINE (#1) 2025 , 02/18/2019, 02/16/2018, Additional history exists HEPATITIS B VACCINE Aged Out No longe r eligible based on patient's age to complete this topic HIB VACCINE Aged Out No longer eligi ble based on patient's age to complete this topic HPV VACCINE Aged Out No longer eligi ble based on patient's age to complete this topic MENINGOCOCCAL (Group B) VACCINE SHARED DECISION-MAKING Aged Out No longer eligible based on patient's age to complete this topic MENINGOCOCCAL GROUPS A/C/Y/W VACCINE Aged Out No longer eligible based on patient's age to complete this topic Care Teams Acid Extractor Relationship Specialty Start Date End Date Deondre Connor MD [facility] DR Rubi DAVIES [address] [place] [address] PCP - General 09/25/10
--- OUTSIDE RECORDS SUMMARY | 2025-02-12 10:28 | XMS_ITS | Encounter Summary ---
Author Organization [facility] Address [address] [place] [address] Phone Care Team Providers Care Construction Trades Teacher Name Role Phone Deondre Connor MD Primary Care Provider [phone] Deondre Connor MD Unavailable [phone] Jaylen Rordiguez MD PhD Unavailable + Sally Harris RN Unavailable Unavailable Argentina Hein RN Unavailable Unavaila Suzy Warner Unavailable Unavailable Reason for Visit * Reason Onset Date Comments Epistaxis (Nose Bleed) 02/11/2025 Encounter Details Date Type Department Care Team (Late st Contact Info) Description 02/11/[address] [facility] Medicine Physicians [facility] Otolaryngology [address] [place] [id number] [place] Yoo Epistaxis (Nose Bleed) Social History Tobacco Use Types Packs/Day Years Used Date Smoking Tobacco: Never Smokeless Tobacco: Never Alcohol Use Standard Drinks/Week Comments [...] on file Legal Sex Female 11:43 PM REIMBURSEMENT COORDINATOR Gender Identity Not on file Sexual Orientation Not on file documented as of this encounter Miscellaneous Notes * Telephone Encounter - Moisés Yooia - 02/11/2025 10:45 AM CDT Snow called in and stated that she is having severe nosebleeds that are lasting 30-40 minutes induration. She stated that she is not using any nasal moisturizer sprays or gels. I told her that she could use saline spray, saline gel, a humidifier and nasal rinses to help keep moisture in her nose to help alleviate her nose bleeds. If she is unable to stop her nosebleeds she could go to the ER or the urgent care. She also requested a sooner appointment, I forwarded her call to scheduling to see if there was an earlier appointment. documented in this encounter Plan of Treatment Not on file documented as of this encounter Visit Diagnoses Not on filedocumented in this encounter Care Teams Construction Trades Teacher Relationship Specialty Start Date End Date Deondre Connor MD [address] [place], [place] [address]JEAN DAVIES [address] [place] [address] PCP - General 04/13/09 Deondre Connor MD [address] [place], [place] [address]JEAN DAVIES [address] [place] [address] PCP - Hum[employer] Attributed PCP 08/03/18 Jaylen Rodriguez MD PhD [address] [place], [place] [address]HOLDEN DAVIES [address] [place] [address] Cardiology 03/20/20 Sally Harris, theater technician Failure Coordinator 09/05/21 Argentina Hien, theater technician Failure Coordinator 03/13/22 Suzy Robbins Primary Layout Former 01/20/25 documented as of this encounter
--- OUTSIDE RECORDS SUMMARY | 2025-02-12 10:28 | XMS_ITS | Encounter Summary ---
Author Organization [facility] Healthcare Address [address] [place] [address] Care Team Providers Care Server Programmer Name Role Phone Deondre Connor MD Primary Care Provider [phone] Deondre Connor MD Unavailable [phone] Jaylen Rodriguez MD PhD Unavailable + Sally Harris RN Unavailable Unavailable Argentina Hein RN Unavailable Unavaila Suzy Warner Unavailable Unavailable Encounter Details Date Type Department Care Team (Late st Contact Info) Description 02/09/2025 Orders Only [facility] [address] [address] Deondre Connor MD [address] [place] [id number] Pure hypercholesterolemia; Epistaxis; Benign hypertension Social History Tobacco Use Types Packs/Day Years [...] on file 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 Gender Identity Not on file Sexual Orientation Not on file documented as of this encounter Plan of Treatment Not on file documented as of this encounter Procedures Procedure Name Priority Date/Time Associated Diagnosis Comments GLUCOSE, RANDOM (OUTREACH) Routine 02/09/2025 10:53 AM CDT Epistaxis Benign hypertension EGFR Routine 02/09/2025 10:53 AM CDT Epistaxis Benign hypertension DIFFERENTIAL AUTO Routine 02/09/2025 10:53 AM CDT Epistaxis Pure hypercholesterolemia Benign hypertension COMPREHENSIVE METABOLIC PANEL WITHOUT GLUCOSE (OUTREACH) Routine 02/09/2025 10:53 AM CDT Epistaxis Benign hypertension COMPREHENSIVE METABOLIC PANEL (OUTREACH) Routine 02/09/2025 10:53 AM CDT Epistaxis Benign hypertension CBC WITH AUTO DIFFERENTIAL Routine 02/09/2025 10:53 AM CDT Epistaxis Pure hypercholesterolemia Benign hypertension LIPID PANEL Routine 02/09/2025 10:53 AM CDT Pure hypercholesterolemia documented in this encounter Results * (ABNORMAL) eGFR (02/09/2025 10:53 AM CDT) eGFR 50(L) >=60 mL/min/1. 73 m2 Comment: [...] 3 AM CDT 02/09/2025 2:19 PM CDT us Deondre Connor MD LAB BLOOD ORDERABLES Final Re sult [facility] Department [place] [address] * Differential, auto (02/09/2025 10:53 AM CDT) Neutrophil abs 5.53 1.50 - 6.50 K/cumm Imm gran abs 0.02 0.00 - 0.10 K/cumm [facility] Lymphocyte abs 1.53 0.80 - 3.30 K/cumm [facility] Monocyte abs 0.56 0.20 - 0.80 K/cumm [facility] Eosinophil abs 0.10 0.00 - 0.50 K/cumm [facility] Basophil abs 0.06 0.00 - 0.10 K/cumm [facility] Neutrophil pct 70.8 % [facility] Comment: Interpretive Data Percent cell count reference ranges are not reported, since discordance with absolute values may lead to misinterpretation of CBC data. Current Interpretive Data was last revised on 2017. Imm gran pct 0.3 % [facility] Comment: Interpretive Data Percent cell count reference ranges are not reported, since discordance with absolute values may lead to misinterpretation of CBC data. Current Interpretive Data was last revised on 2017. Lymphocyte pct 19.6 % [facility] Comment: Interpretive Data Percent cell count reference ranges are not reported, since discordance with absolute values may lead to misinterpretation of CBC data. Current Interpretive Data was last revised on 2017. Monocyte pct 7.2 % [facility] Comment: Interpretive Data Percent cell count reference ranges are not reported, since discordance with absolute values may lead to misinterpretation of CBC data. Current Interpretive Data was last revised on 2017. Eosinophil pct 1.3 % [facility] Comment: Interpretive Data Percent cell count reference ranges are not reported, since discordance with absolute values may lead to misinterpretation of CBC data. Current Interpretive Data was last revised on 2017. Basophil pct 0.8 % [facility] Comment: Interpretive Data Percent cell count reference ranges are not reported, since discordance with absolute values may lead to misinterpretation of CBC data. Current Interpretive Data was last revised on 2017. Blood 02/09/2025 10:5 3 AM CDT 02/09/2025 2:17 PM CDT Deondre Connor MD LAB BLOOD ORDERABLES Final Re sult Performing Organization Address [facility] de Phone Number [facility] [email or web address] [address] * Glucose, random (Outreach) (02/09/2025 10:53 AM CDT) [facility] Signature Glucose 125 70 - 199 mg/dL Comment: [...] classification and Diagnosis of Diabetes Diabetes Care 202; 46: S19-S40. Current interpretive data was last revised 2022. Blood 02/09/2025 10:5 3 AM CDT 02/09/2025 2:17 PM CDT Deondre Connor MD LAB BLOOD ORDERABLES Final Re sult Performing Organization Address [facility] Co de Phone Number [facility] Department [place] [address] * (ABNORMAL) Comprehensive metabolic panel, without glucose (Outreach) (02/09/2025 10:53 AM CDT) [facility] Sodium 143 135 - 145 mmol/L Potassium, pl 4.4 3.3 - 4.9 mmol/L [facility] Chloride 105 97 - 110 mmol/L [facility] CO2 28 22 - 32 mmol/L [facility] Anion gap 10 2 - 15 mmol/L [facility] BUN 27(H) 6 - 25 mg/dL [facility] Creatinine 1.12(H) 0.60 - 1.10 mg/dL [facility] Calcium 9.6 8.5 - 10.3 mg/dL [facility] Protein, pl 8.2 6.5 - 8.5 g/dL [facility] Albumin 4.2 3.5 - 5.0 g/dL [facility] Bilirubin, total 0.5 0.1 - 1.2 mg/dL [facility] Alk phos 90 40 - 130 Units/L [facility] AST 23 10 - 45 Units/L [facility] ALT 16 7 - 45 Units/L [facility] Blood 02/09/2025 10:5 3 AM CDT 02/09/2025 2:17 PM CDT us Deondre Connor MD LAB BLOOD ORDERABLES Final Re sult [facility] Department [place] [address] * (ABNORMAL) CBC with auto differential (02/09/2025 10:53 AM CDT) [facility] WBC 7.80 3.80 - 9.90 K/cumm Hgb 12.8 11.9 - 15.5 g/dL [facility] Hct 40.1 35.6 - 45.5 % [facility] Plt 263 150 - 400 K/cumm [facility] MPV 11.3 9.1 - 12.3 fL [facility] RBC 4.78 3.90 - 5.20 M/cumm [facility] MCV 83.9 81.3 - 96.4 fL [facility] MCH 26.8(L) 27.1 - 33.3 pg [facility] MCHC 31.9(L) 32.3 - 35.7 g/dL [facility] RDW CV 14.3 11.1 - 14.9 % [facility] RDW SD 44.1 35.7 - 48.1 fL [facility] NRBC abs 0.00 0.00 - 0.01 K/cumm [facility] Blood 02/09/2025 10:5 3 AM CDT 02/09/2025 2:17 PM CDT Deondre Connor MD LAB BLOOD ORDERABLES Final Re sult [facility] Department [place] [address] * Lipid panel (02/09/2025 10:53 AM CDT) Cholesterol 176 30 - 199 mg/dL Comment: [...] revised on 2017. Triglycerides 130 <=149 mg/dL [facility] Comment: Interpretive Data Ages < or = [...] revised on 2017. HDL 62 >=40 mg/dL [facility] Comment: Interpretive Data Ages < or = [...] on 2017. LDL, calculated 91 <=129 mg/dL [facility] Comment: Interpretive Data Ages < or = [...] revised on 2023. Non-HDL Cholesterol 114 mg/dL [facility] Comment: Interpretive Data Ages < or = [...] last revised on 2017. Chol/HDL ratio 3 [facility] Blood 02/09/2025 10:5 3 AM CDT 02/09/2025 2:17 PM CDT Deondre Connor MD LAB BLOOD ORDERABLES Final Re sult [facility] Department [place] [address] documented in this encounter Visit Diagnoses Diagnosis Pure hypercholesterolemia Epistaxis Benign hypertension Essential hypertension, benign documented in this encounter Care Teams Server Programmer Relationship Specialty Start Date End Date Deondre Connor MD [address] [place] [address] [address] [place] [address] PCP - General 04/13/09 Deondre Connor MD [address] [place], [place] [address]JE[address] [place] [address] PCP - [employer] Attributed PCP 08/03/18 Jaylen Rodriguez MD PhD [address] [place], [place] [address] [place] [address] Cardiology 03/20/20 Sally Harris, electric deicer assembler Failure Coordinator 09/05/21 Argentina Hein, electric deicer assembler Failure Coordinator 03/13/22 Suzy Robbins Primary Cashier And Waiter/Waitress 01/20/25 documented as of this encounter
--- NOTE | 2025-02-12 11:00 | ED.EPISTAXIS ---
HPI - Epistaxis General Chief complaint: Epistaxis Stated complaint: epistaxis Time Seen by Provider: 02/12/25 10:10 History of Present Illness HPI Narrative: For last 1-2 weeks, patient has had intermittent nosebleeds, mostly on the right side. Saw her doctor for this and have referral to ENT. Last bleeding was this morning. Has been using pressure and did try nasal rinse yesterday but thinks that it did reactivate a nosebleed. Many years ago had similar issues that required cauterization by ENT. On aspirin and Plavix Related Data Home Medications ?Medication ?Instructions ?Recorded ?Confirmed ?Last Taken ?Type acetaminophen 650 mg 1,300 mg PO DAILY 05/07/22 05/16/22 Unknown History tablet,extended release (Tylenol Arthritis Pain) amlodipine 10 mg tablet 10 mg PO DAILY 05/07/22 05/16/22 05/11/22 History aspirin 81 mg capsule 81 mg PO DAILY 05/07/22 05/16/22 Unknown History atorvastatin 40 mg tablet 40 mg PO HS 05/07/22 05/16/22 Unknown History carvedilol 12.5 mg tablet 12.5 mg PO BID 05/07/22 05/16/22 05/11/22 History clopidogrel 75 mg tablet 75 mg PO DAILY 05/07/22 05/16/22 Unknown History diphenhydramine 25 1 - 2 tablet PO HS PRN Pain 05/07/22 05/16/22 Unknown History mg-acetaminophen 500 mg tablet (Tylenol PM Extra Strength) furosemide 20 mg tablet 40 mg PO DAILY 05/07/22 05/16/22 Unknown History isosorbide mononitrate 60 mg 120 mg PO DAILY 05/07/22 05/16/22 Unknown History tablet,extended release 24 hr losartan 100 mg tablet 100 mg PO DAILY 05/07/22 05/16/22 Unknown History melatonin 5 mg tablet 5 mg PO HS 05/07/22 05/16/22 Unknown History nitroglycerin 0.4 mg sublingual 0.4 mg sublingual DIRECTED PRN 05/07/22 05/16/22 Unknown History tablet Angina omeprazole 40 mg capsule,delayed 40 mg PO DAILY 05/07/22 05/16/22 Unknown History release Allergies Allergy/AdvReac Type Severity Reaction Status Date / Time No Known Allergies Allergy Verified 02/12/25 10:10 Review of Systems Review of Systems: All systems reviewed & are unremarkable except as noted in HPI and below PMFSH Past Medical History Medical History CAD (coronary artery disease) CHF (congestive heart failure) History of heart attack 2005 Hyperlipidemia Hypertension Surgical History Surgical History History of coronary artery stent placement Hx of CABG x4, 2005 Social History Social History Smoking status: Never smoker Alcohol intake: current Substance use: never Substance use type: does not use Living arrangements: with family Spiritual care concerns: No Exam Narrative: EXAMINATION OF ORGAN SYSTEMS/BODY AREAS: Constitutional: Vital signs per nursing GENERAL:[No acute distress, non-toxic appearing.] HEAD: Normal with no signs of head trauma. EYES: EOMI, conjunctiva normal ENT: No current active bleeding that I can see, there is a small area drying blood anterior right nostril LUNGS: Nonlabored breathing. HEART: [Regular rate and rhythm] ABD: [Soft], [nontender to palpation] EXT: Normal range of motion SKIN: [No rashes or lesions.] NEURO: [Alert and oriented x 3. No gross focal sensory or strength deficits.] PSYCH: Normal affect Course Vital Signs Vital signs: Vital Signs Temperature 97.7 F 02/12/25 08:27 Pulse Rate 77 02/12/25 08:27 Respiratory Rate 18 02/12/25 08:27 Blood Pressure 199/65 H 02/12/25 08:27 Pulse Oximetry 96 02/12/25 08:27 Oxygen Delivery Room Air 02/12/25 08:27 Temperature 97.7 F 02/12/25 08:27 Pulse Rate 61 02/12/25 11:15 Respiratory Rate 18 02/12/25 11:15 Blood Pressure 145/93 H 02/12/25 11:15 Pulse Oximetry 98 02/12/25 11:15 Oxygen Delivery Room Air 02/12/25 10:08 Procedures Epistaxis Control right: Epistaxis Control Date: 02/12/25 Epistaxis Control Time: 11:02 Nose Prepped With: oxymetazoline and other (TXA) Direct Inspection: anterior source identified (one small area of dried blood) Cautery Used: silver nitrate Patient Tolerated Procedure: well and no complications MDM - Epistaxis MDM Narrative Medical decision making narrative: Patient presents with intermittent nosebleeds; she does have a tiny area dried blood in the anterior right near is agreeable to silver nitrate, I did inform patient that she will need to follow-up with her ENT as scheduled since she would likely benefit from a scope for deeper visualization, I will also use TXA and Afrin here. Patient tolerated this all very well, after some observation here, has not had further bleeding. Will check some labs since this has been going on for a while. Labs within acceptable limits. Has not had further bleeding since she has been here. She feels comfortable with outpatient management with strict return precautions. Care instructions provided in person and on paper. Lab Data 02/12/25 11:05 02/12/25 11:05 Labs: Lab Results 02/12/25 Range/Units 11:05 WBC 8.2 (4.5-10.0) K/mm3 RBC 4.40 (4.2-5.4) M/mm3 Hgb 11.8 L (12.0-15.0) g/dL Hct 37.9 (37.0-47.0) % MCV 86.1 (80-100) fl MCH 26.8 (26-34) pg MCHC 31.1 L (32-36) g/dl RDW 14.6 H (11.5-14.5) % Plt Count 232 (150-375) k/mm3 MPV 10.4 (7.4-10.4) fl Immature Gran % (Auto) 0.5 (0-0.5) % Neut % (Auto) 73.6 H (45.5-73.1) % Lymph % (Auto) 16.6 L (18.3-44.2) % [place] % (Auto) 7.5 (2.6-8.5) % Eos % (Auto) 1.3 (0-4.4) % Baso % (Auto) 0.5 (0.2-1.2) % Lymph # (Auto) 1.37 (0.9-3.2) K/mm3 [place] # (Auto) 0.6 (0.1-0.6) K/mm3 Eos # (Auto) 0.1 (0-0.3) K/mm3 Baso # (Auto) 0.0 (0.0-0.1) K/mm3 Abs Immat Gran (auto) 0.04 H (0.00-0.031) K/mm3 Absolute Neuts (auto) 6.1 (1.3-6.7) K/mm3 Absolute Nucleated RBC 0.000 (0.0-0.012) K/mm3 Nucleated RBC % 0.0 (0.0-0.2) % PT 12.5 (11.1-14.7) Seconds INR 0.9 APTT 27.6 (22.3-36.8) Seconds Sodium 142 (137-145) mmol/L Potassium 3.9 (3.4-5.0) mmol/L Chloride 105 (98-107) mmol/L Carbon Dioxide 30 (22-30) mmol/L Anion Gap 7 (4-12) mmol/L BUN 34 H (7-17) mg/dL Creatinine 1.02 H (0.7-1.0) mg/dL Estim Creat Clear Calc 40 ml/min Estimated GFR 52 L (59 - ) Glucose 122 H (65-110) mg/dL Calcium 9.1 (8.4-10.2) mg/dL Discharge Plan Discharge Clinical Impression: Epistaxis Patient Disposition: Home Condition: Stable Instructions: Nosebleed (ED) Additional Instructions: Please follow-up with the ENT as scheduled in the next few days, try not to pick or traumatize your nose, you can use Vaseline to coat the inside of both nostrils twice a day, you can try a humidifier. Make sure to keep hydrated You were given Afrin and TXA to help with the nose bleed. You can use it if you start having another episode of bleeding, and make sure to apply pressure for at least 10-15 minutes. If you are unable to stop the nose bleed or if you have any further issues, come back to the hospital. Patient Language: Turkish Prescriptions: No Action atorvastatin 40 mg tablet 40 mg PO HS carvedilol 12.5 mg tablet 12.5 mg PO BID clopidogrel 75 mg tablet 75 mg PO DAILY omeprazole 40 mg capsule,delayed release(DR/EC) 40 mg PO DAILY acetaminophen [Tylenol Arthritis Pain] 650 mg Tablet Extended Release 1,300 mg PO DAILY isosorbide mononitrate 60 mg tablet extended release 24 hr 120 mg PO DAILY amlodipine 10 mg tablet 10 mg PO DAILY nitroglycerin 0.4 mg tablet, sublingual 0.4 mg sublingual DIRECTED PRN (Reason: Angina) furosemide 20 mg tablet 40 mg PO DAILY diphenhydramine-acetaminophen [Tylenol PM Extra Strength] 25-500 mg Tablet 1 - 2 tablet PO HS PRN (Reason: Pain) losartan 100 mg tablet 100 mg PO DAILY melatonin 5 mg Tablet 5 mg PO HS aspirin 81 mg Capsule 81 mg PO DAILY Follow-up/Referrals: PHYSICIAN NOT ON STAFF,NONSTAFF [Primary Care Provider]
[2025-02-12 11:12] LABS: Hematocrit 37.9 % (37.0-47.0); Hemoglobin 11.8 g/dL (12.0-15.0); Immature Granulocyte Percent A 0.5 % (0-0.5); Lymphocytes Absolute Auto 1.37 K/mm3 (0.9-3.2); Mean Corpuscular HGB Conc 31.1 g/dl (32-36); Mean Corpuscular Hemoglobin 26.8 pg (26-34); Mean Corpuscular Volume 86.1 fl (80-100); Nucleated Red Blood Cells Absolute Auto 0.000 K/mm3 (0.0-0.012); Nucleated Red Blood Cells Perc 0.0 % (0.0-0.2); Platelet Count Result 232 k/mm3 (150-375); Red Blood Count 4.40 M/mm3 (4.2-5.4); White Blood Count 8.2 K/mm3 (4.5-10.0)
[2025-02-12 11:15] VITALS: BP 145/93; PULSE 61; RESP 18; O2SAT 98
[2025-02-12 11:24] LABS: INR 0.9; Prothrombin Time 12.5 Seconds (11.1-14.7)
[2025-02-12 11:25] LABS: Partial Thromboplastin Time 27.6 Seconds (22.3-36.8)
[2025-02-12 11:32] LABS: Anion Gap 7 mmol/L (4-12); Blood Urea Nitrogen 34 mg/dL (7-17); Calcium 9.1 mg/dL (8.4-10.2); Carbon Dioxide 30 mmol/L (22-30); Chloride 105 mmol/L (98-107); Estimated CRCL calculation 40 ml/min; Estimated Glomerular Filt Rate 52; Glucose 122 mg/dL (65-110); Potassium 3.9 mmol/L (3.4-5.0); Sodium 142 mmol/L (137-145)
== END 2025-02-12 12:19 | disposition home or self-care (01) ==
PROVIDERS: Emergency Provider Emergency Medicine
DX: R04.0 Epistaxis (principal); I25.10 Atherosclerotic heart disease of native coronary artery without angina pectoris; I50.9 Heart failure, unspecified; I11.0 Hypertensive heart disease with heart failure; I25.2 Old myocardial infarction; E78.5 Hyperlipidemia, unspecified; Z95.5 Presence of coronary angioplasty implant and graft; Z95.1 Presence of aortocoronary bypass graft; Z79.82 Long term (current) use of aspirin; Z79.899 Other long term (current) drug therapy; Z79.02 Long term (current) use of antithrombotics/antiplatelets
CPT/HCPCS: 30901; 36415; 80048; 85025; 85610; 85730; 99283; A9270